=== PATIENT | female | born 1980 | race Two or more races ===

== ENCOUNTER 2025-05-22 06:43 | Emergency (ER) | payer MEDICAID, OTHER ==
[~2025-05-22] VITALS: Ht 167.6 cm; Wt 69.6 kg
--- NOTE | 2025-05-22 07:12 | ED.PDOC ---
Musculoskeletal HPI Comments A 45 YEAR OLD FEMALE PRESENTS TO THE ED WITH COMPLAINT OF LEFT ARM SWELLING AND PAIN. PATIENT REPORTS THAT SHE HAD WENT IN FOR PLASMA DONATION YESTERDAY WHEN DURING IT SHE STARTED TO EXPERIENCE LEFT ARM PAIN AND SWELLING. PATIENT RELAYS THAT HER DONATION WAS STOPPED AND SHE HAD WENT HOME. PATIENT STATES SHE HAS NOW DEVELOPED WORSENING PAIN, SWELLING, REDNESS, AND HEAT TO THE SITE OF HER IV INSERTION. PATIENT DENIES FEVER, CHILLS, SHORTNESS OF BREATH, CHEST PAIN, ABDOMINAL PAIN, NAUSEA, VOMITING, HEADACHE, OR OTHER COMPLAINTS. NO OTHER SYMPTOMS OR MODIFYING FACTORS AT THIS TIME. PATIENT IS ALERT, ORIENTED X 4, AND HAS STEADY GAIT. Chief Complaint: Upper Extremity Time Seen by MD: 07:09 Reviewed Notes: Nurses Notes, Medications, Allergies Allergies: Coded Allergies: NO KNOWN ALLERGIES (Unverified , 05/22/25) Home Meds Active Scripts Cephalexin Monohydrate (Cephalexin) 500 Mg Cap, 1 CAP PO QID, #28 CAP Prov:CEZAR VILLALOBOS 05/22/25 Naproxen (Naproxen) 500 Mg Tab, 500 MG PO BID, #30 TAB Prov:CEZAR VILLALOBOS 05/22/25 Information Source: Patient Mode of Arrival: Ambulatory Location: Left Extremity Location: Arm Timing: Hours Prehospital treatment: None Severity: Mild, Moderate Able to Move Extremity: Yes Pain: Moderate Mechanism: Other (IV INSERTION) Circumstances: Other (PLASMA DONATION) Onset of Symptoms: After Trauma Symptoms: Swelling, Pain, Erythema, Warmth DVT Risk Factors: NONE Last Tetanus: Unknown Associated signs and symptoms: None Past Medical History PAST MEDICAL HISTORY: Denies Surgical History: Denies all surgeries PLANT GUARD History: No Pertinent PLANT GUARD History Family History Family History: Reviewed,noncontributory to illness Social History Smoker: Non-Smoker Alcohol: Denies ETOH Use Drugs: Denies Drug Use Lives In: Home Constitutional: denies: chills, diaphoresis, fatigue, fever, malaise, sweats, weakness, others EENTM: denies: blurred vision, double vision, ear bleeding, ear discharge, ear drainage, ear pain, ear ringing, eye pain, eye redness, hearing loss, mouth pain, mouth swelling, nasal discharge, nose bleeding, nose congestion, nose pain, photophobia, tearing, throat pain, throat swelling, voice changes, others Respiratory: denies: cough, hemoptysis, orthopnea, SOB at rest, shortness of breath, SOB with excertion, stridor, wheezing, others Cardiovascular: denies: chest pain, dizzy spells, diaphoresis, Dyspnea on exertion, edema, irregular heart beat, left arm pain, lightheadedness, palpitations, PND, syncope, others Gastrointestinal: denies: abdomen distended, abdominal pain, blood streaked bowels, constipated, diarrhea, dysphagia, difficulty swallowing, hematemesis, melena, nausea, poor appetite, poor fluid intake, rectal bleeding, rectal pain, vomiting, others Genitourinary: denies: abnormal vagina bleeding, burning, dyspareunia, dysuria, flank pain, frequency, hematuria, incontinence, pain, , vagina discharge, urgency, others Neurological: denies: dizziness, fainting, headache, left sided numbness, left sided weakness, numbness, paresthesia, pre-existing deficit, right sided numbness, right sided weakness, seizure, speech problems, tingling, tremors, weakness, others Musculoskeletal: reports: others (LEFT ANTECUBITAL REGION PAIN, REDNESS, AND SWELLING); denies: back pain, gout, joint pain, joint swelling, muscle pain, muscle stiffness, neck pain Integumetry: reports: lumps (LEFT ANTECUBITAL SPACE ); denies: bruises, change in color, change in hair/nails, dryness, laceration, lesions, rash, wounds, others Allergic/Immunocompromised: denies: Difficulty Healing, Frequent Infections, Hives, Itching, others Hematologic/Lymphatic: denies: anemia, blood clots, easy bleeding, easy bruising, swollen glands, others Endocrine: denies: excessive hunger, excessive sweating, excessive thirst, excessive urination, flushing, intolerance to cold, intolerance to heat, unexplained weight gain, unexplained weight loss, others Psychiatric: denies: anxiety, bipolar disorder, depression, hopeless, panic disorder, schizophrenia, sleepless, suicidal, others All Other Systems: Reviewed and Negative Physical Exam General Appearance: No Apparent Distress, Normal HEENT: Normal ENT Inspection, PERRL/EOMI, Pharynx Normal, TMs Normal Neck: Full Range of Motion, Non-Tender, Normal, Normal Inspection Respiratory: Chest Non-Tender, Lungs Clear, No Accessory Muscle Use, No Respiratory Distress, Normal Breath Sounds Cardiovascular: No Edema, No JVD, No Murmur, No Gallop, Normal Peripheral Pulses, Regular Rate/Rhythm Breast Exam: Deferred Gastrointestinal: No Organomegaly, Non Tender, No Pulsatile Mass, Normal Bowel Sounds, Soft Genitalia: Deferred Pelvic: Deferred Rectal: Deferred Extremities: No calf tenderness, Normal capillary refill, Normal range of motion, No pedal edema, Tender (TENDERNESS WITH LOCALIZED SWELLING AND REDNESS TO LEFT ANTECUBITAL REGION, NO REDNESS AND SWELLING LEFT ARM AND FOREARM, NO DVT SIGNS. ) Musculoskeletal : Apperance: Normal Neurologic: Alert, valet parker II-XII nml as Tested, No Motor Deficits, Normal Affect, Normal Mood, No Sensory Deficits Cerebellar Function: Normal Reflexes: Normal Skin: Dry, Normal Color, Warm, Other (LOCALIZED REDNESS, MILD SWELLING AND HARDNESS ON LEFT ANTECUBITAL REGION, NO OPEN WOUND SEEN, SOFTE TISSUE INFECTION??) Peripheral Pulses: 2+ carotid (R), 2+ carotid (L), 2+ Radial (R), 2+ Radial (L) Lymphatic: No Adenopathy Was a procedure done? Was a procedure done?: No Differential Diagnosis EXT Differential Diagnosis: Deep Vein Thrombosis, Bursitis Other Differential Diagnosis IV INFILTRATION X-Ray, Labs, Meds, VS Vital Signs Date Time Temp Pulse Resp B/P (MAP) Pulse Ox O2 Delivery O2 Flow Rate FiO2 05/22/25 08:01 98.3 77 15 104/66 (79) 100 98.3 05/22/25 06:50 98.0 89 16 113/77 100 98.0 PATIENT: SHANNON DE LUNA MACCT: [id number]: [id number] : 1980 LOC: ER ROOM / BED: / AGE / SEX: 45 / F ADM STATUS: DEP ER SERVICE [id number] ORDERING PHYSICIAN: CEZAR VILLALOBOS PROCEDURE(s): LUDVT - LT Upper DVT REASON: LEFT ANTECUBITAL REGION PAIN, SWELLING AND HARDNESS POST IV ORDER NUMBER(s): [id number], ACCESSION NUMBER(s): [id number] LEFT Upper Extremity Venous Duplex CLINICAL HISTORY: LEFT ANTECUBITAL REGION PAIN, SWELLING AND HARDNESS POST IV COMPARISON: None TECHNIQUE: Duplex Doppler evaluation of the venous system of the LEFT lower neck and upper extremity including color Doppler and spectral/pulsed waveform analysis was performed. FINDINGS: The internal jugular vein demonstrates appropriate compressibility and waveform variability. The subclavian vein is patent on color Doppler evaluation without intraluminal thrombus and demonstrates waveform variability. The visualized portion of the brachiocephalic vein is patent on color Doppler evaluation without intraluminal thrombus and demonstrates waveform variability. The axillary vein demonstrates appropriate compressibility and waveform variability. The brachial veins demonstrate appropriate compressibility and patency on Doppler evaluation. The basilic vein demonstrates appropriate compressibility and patency on Doppler evaluation. The cephalic vein demonstrates noncompressibility and partial thrombus. IMPRESSION: Noncompressibility in the cephalic vein at the antecubital fossa which may represent superficial thrombophlebitis. No left upper extremity DVT. ATED BY: YOSI JIMENEZ MD DICTATED DATE/TIME: 05/22/25827 SIGNED BY: YOSI JIMENEZ MD SIGNED DATE/TIME: 05/22/25827 CC: X-Ray, Labs, Meds, VS Comment EXTERNAL MEDICAL RECORDS REVIEWED: [NONE] INDEPENDENT HISTORIANS: [NONE] SOCIAL DETERMINANTS OF HEALTH: [NONE] LABS ORDERED: NONE REVIEWED AND INTERPRETED RESULTS: LT UPPER DVT IMAGING ORDERED: LT UPPER DVT TREATMENTS ORDERED: NONE PROCEDURES PERFORMED: NONE CRITICAL CARE TIME: NONE I HAVE DISCUSSED THE PATIENT WITH THE ATTENDING PHYSICIAN DR. VICTORIA AND HE AGREES WITH THE PATIENT'S PLAN OF CARE AND DISPOSITION. BASED ON HISTORY OF PRESENT ILLNESS, AND PHYSICAL EXAM, PATIENT WILL BE DISCHARGED HOME. DISCUSSED PLAN FOR DISCHARGE HOME WITH RX [NAPROXEN AND CEPHALEXIN]. MEDICATION WARNINGS GIVEN. SHARED DECISION MAKING: DISCUSSED WITH PATIENT THAT THEIR WORKUP WAS NORMAL. PATIENT INSTRUCTED TO FOLLOW UP WITH PRIMARY CARE PROVIDER IN 1-2 DAYS FOR RE- EVALUATION OF SYMPTOMS. PATIENT VERBALIZES UNDERSTANDING TO RETURN TO ED FOR NEW OR WORSENING SYMPTOMS OR IF FOLLOW UP WITH PCP CANNOT BE OBTAINED. PATIENT FEELS COMFORTABLE GOING HOME AT THIS TIME. ALL QUESTIONS ADDRESSED AT TIME OF DISCHARGE. Time of 1ST Reevaluation: 08:30 Reevaluation 1ST: Improved Patient Education/Counseling: Diagnosis, Treatment, Need For Follow Up Family Education/Counseling: Diagnosis, Treatment, No Family Present Medical Screening: No EMC Exist At This Time Departure 1 Departure Time of Disposition: 08:30 Impression: Primary Impression: Superficial thrombophlebitis of cephalic vein Additional Impression: Suspected soft tissue infection Disposition: HOME / SELF CARE / HOMELESS Condition: Stable Additional Instructions: FOLLOW-UP WITH PCP IN 1 TO 2 DAYS. TAKE MEDICATIONS PRESCRIBED. RETURN TO ED FOR ANY NEW OR WORSENING SYMPTOMS. e-Prescriptions Cephalexin Monohydrate (Cephalexin) 500 Mg Cap 1 CAP PO QID, #28 CAP Prov: CEZAR VILLALOBOS 05/22/25 Naproxen (Naproxen) 500 Mg Tab 500 MG PO BID, #30 TAB Prov: CEZAR VILLALOBOS 05/22/25 Discharged With: Self Critical Care Note Critical Care Time?: No Stability Stability form required: No Heart Score Heart Score: Heart Score Response (Comments) Value History N/A 0 EKG N/A 0 Age N/A 0 Risk Factors N/A 0 Troponin N/A 0 Total 0 I personally scribed for CEZAR VILLALOBOS ([email or web address]) on 05/22/25 at 07:12. Electronically submitted by Doron Smith ([email or web address]). I personally scribed for CEZAR VILLALOBOS ([email or web address]) on 05/22/25 at 07:54. Electronically submitted by Doron Smith ([email or web address]). CEZAR VILLALOBOS May 22, 2025 07:12
[2025-05-22 08:01] VITALS: BP 104/66; PULSE 77; RESP 15; TEMP 98.3; O2SAT 100
[2025-05-22] MEDS ORDERED: NAPR-746 PO (08:02)
[2025-05-22] MEDS ORDERED: CEPH500C PO (08:02)
--- NOTE | 2025-05-22 08:30 | DVH ---
LEFT Upper Extremity Venous Duplex CLINICAL HISTORY: LEFT ANTECUBITAL REGION PAIN, SWELLING AND HARDNESS POST IV COMPARISON: None TECHNIQUE: Duplex Doppler evaluation of the venous system of the LEFT lower neck and upper extremity including color Doppler and spectral/pulsed waveform analysis was performed. FINDINGS: The internal jugular vein demonstrates appropriate compressibility and waveform variability. The subclavian vein is patent on color Doppler evaluation without intraluminal thrombus and demonstrates waveform variability. The visualized portion of the brachiocephalic vein is patent on color Doppler evaluation without intraluminal thrombus and demonstrates waveform variability. The axillary vein demonstrates appropriate compressibility and waveform variability. The brachial veins demonstrate appropriate compressibility and patency on Doppler evaluation. The basilic vein demonstrates appropriate compressibility and patency on Doppler evaluation. The cephalic vein demonstrates noncompressibility and partial thrombus. IMPRESSION: Noncompressibility in the cephalic vein at the antecubital fossa which may represent superficial thrombophlebitis. No left upper extremity DVT.
== END 2025-05-22 08:15 | disposition home or self-care (01) ==
LOC: ER 06:43
DX: I80.8 Phlebitis and thrombophlebitis of other sites (principal)
CPT/HCPCS: 93971